=== PATIENT | female | born 1960 | race Caucasian/White ===

== ENCOUNTER 2018-07-26 01:56 | Observation (INO) ==
[2018-07-26] MEDS ORDERED: HYDROmorphone HCL 2 MG/ML VIAL IV ONE (02:19)
[2018-07-26] MEDS ORDERED: NORMAL SALINE 1,000 ML IV ONE ×2 (02:19→05:32)
[2018-07-26] MEDS ORDERED: ONDANSETRON HCL/PF 2 MG/ML VIAL IV ONE ×2 (02:19→05:35)
[2018-07-26] MEDS ORDERED: PANTOPRAZOLE SODIUM 40 MG/100 ML PIGGYBACK IV ONE (02:20)
--- NOTE | 2018-07-26 02:25 | ERNOTE ---
Abdominal HPI - Narrative Date of Service: 07/26/18 - General Chief Complaint: Abdominal Pain Time Seen by Provider: 07/26/18 02:14 Source: patient, family Exam Limitations: no limitations - Immun/Allergies/Home Medications Immunizatons: IMMUNIZATION HX Immunizations Up to Date Yes History of Influenza Vaccine No Hx Pneumococcal Vaccination No Allergies/Adverse Reactions: Allergies No Known Drug Allergies Allergy (Verified 10/29/15 11:32) Home Medications: HOME MEDICATIONS Levothyroxine Sodium [Synthroid] 50 mcg PO DAILY 07/26/18 [Last Taken Unknown] - History of Present Illness Narrative: onset of abdominal pain last evening after patient ate Timing: constant, getting worse Quality: moderate, cramping, dullness, fullness Modifying Factors - (Improves): Present: vomiting Modifying Factors - (Worsens): Present: eating Associated Symptoms: Present: nausea, vomiting, loss of appetite Prior Abdominal Problems: Present: none Review of Systems - Review of Systems Constitutional: Present: See HPI EYE: Present: no symptoms reported ENT: Present: no symptoms reported Respiratory: Present: no symptoms reported Cardiology: Present: no symptoms reported Gastrointestinal/Abdominal: Present: See HPI, nausea, vomiting, abdominal pain, eating less, drinking less Genitourinary: Present: no symptoms reported Musculoskeletal: Present: no symptoms reported Skin: Present: no symptoms reported Neurological: Present: no symptoms reported Endocrine: Present: no symptoms reported Hematologic/Lymphatic: Present: no symptoms reported Psych: Present: no symptoms reported All Other Systems: All systems neg except as marked Medical History (Last Updated 07/26/18 @ 02:08 by Jillian Stinson RN) Hypothyroidism Surgical History: Surgical History (Last Updated 07/26/18 @ 02:07 by Jillian Stinson RN) History of hysterectomy Status post cryoablation Social History: Preferred Language Tongan Do you have any worship or No cultural preference? Smoking Status Never smoker Psych History No pertinent hx Alcohol Use occasionally Drug Use none No Social History Section defined Physical Exam - Physical Exam General Appearance: Present: moderate distress, anxious Head Exam: Present: normal inspection, no evidence of injury Eye Exam: Normal inspection: bilateral, PERRL: bilateral, EOMI: bilateral Ears, Nose, Throat: Present: normal ENT inspection, normal pharynx Neck: Present: normal inspection, nontender Respiratory: Present: no respiratory distress, normal breath sounds, no accessory muscle use, chest nontender, lungs clear Cardiovascular/Chest: Present: regular rate, rhythm, no murmur, normal peripheral pulses Peripheral Pulses: N=norm/S=strong/W=weak/B=bound/A=absent: Carotid (R): Normal, Carotid (L): Normal, Radial (R): Normal, Radial (L): Normal, Femoral (R): Normal, Femoral (L): Normal, Dorsalis-pedis (R): Normal, Dorsalis-pedis (L): Normal Gastrointestinal/Abdominal: Present: tenderness, distended, other - pain localized to upper right quadrant and epigastrium Back Exam: Present: normal inspection, normal range of motion, no CVA tenderness, no vertebral tenderness Extremity Exam: Present: normal inspection, non-tender, normal range of motion, no edema Neurological Exam: Present: alert, oriented, normal mood/affect, no m otor/sensory deficits Skin Exam: Present: normal color, warm/dry Lymphatic Exam: Present: no adenopathy Progress - Date and Time Seen: Date and Time: 07/26/18 05:17 patient improved, discussed results of lab and x-rays with patient, to be admitted - Results and Orders Patient's Lab Results:: I have reviewed the patient's lab results. - Vital Signs Patient's Vital Signs:: I have reviewed the patient's vital signs. Vital Signs: Vital Signs 07/26/18 02:01 Temperature 36.4 C Pulse Rate 73 Respiratory Rate 22 H Blood Pressure 199/86 H O2 Sat by Pulse Oximetry 100 - X-Ray X-Ray #1 X-Ray: abdomen Interpretation: Interp. by [facility] - [facility] - CT/Ultrasound CT/Ultrasound Narrative: cholithiasis - Progress/Reassessment Chief Complaint: Abdominal Pain Progress:: Improved - Transfer of Care Expected Disposition: Admit Plan - Plan Plan: case discussed with dr deluna to be admitted Departure Clinical Impression: Cholelithiasis, Acute UTI - Departure Disposition: Still a patient Condition: Stable Referrals: Subha Ramírez MD [Primary Care Provider] -
[2018-07-26 02:34] LABS: Hematocrit 40.5 % (37.0-47.0); Hemoglobin 13.7 gm/dL (12.5-16.0); Mean Cell Volume 93.3 fl (78-100); Mean Corpuscular Hemoglobin 31.6 pg (27-31); Mean Corpuscular Hgb Conc 33.8 g/dl (32-36); Mean Platelet Volume 10.2 fl (8-12.5); Neutrophil # 9.5 K/mm3 (1.3-6.0); Neutrophil % 77.7 % (42-75.0); Platelet Count 292 K/mm3 (150-450); Red Blood Count 4.34 M/mm3 (4.2-5.4); Red Cell Distribution Width 12.3 % (11.5-14.0); White Blood Count 12.2 K/mm3 (4.0-10.5)
[2018-07-26 02:37] LABS: Urine Bilirubin Negative (NEGATIVE); Urine Ketone 15 mg/dL (NEGATIVE); Urine Nitrite Negative (NEGATIVE); Urine Protein Negative (NEGATIVE); Urine Urobilinogen Normal (NORMAL)
[2018-07-26 02:52] LABS: Bilirubin, Total 0.4 mg/dL (0.0-1.1); Calcium * 9.3 mg/dL (7.9-10.9); Carbon Dioxide 22.3 mmol/L (24-32.6); Potassium 3.3 mmol/L (3.4-4.6); Total Protein 7.7 gm/dL (6.2-8.2)
[2018-07-26 02:57] LABS: Urine Appearance Cloudy (CLEAR); Urine Blood 5 /ul (NEGATIVE); Urine Color Yellow
[2018-07-26 02:59] LABS: Urine WBC 0-5 /hpf (0-5)
[2018-07-26 03:00] LABS: Urine Bacteria 4+; Urine RBC None Seen /hpf (0-5)
[2018-07-26 03:01] LABS: Urine Renal Epithelial Cell TRACE /hpf
[2018-07-26] MEDS ORDERED: HYDROmorphone HCL 1 MG/ML DISP.SYRIN IV ONE (05:14)
[2018-07-26] MEDS ORDERED: ONDANSETRON HCL/PF 2 MG/ML VIAL IV PRN (07:48)
[2018-07-26] MEDS ORDERED: LEVOFLOXACIN IN DEXTROSE 5 % 500 MG/100 ML BAG IV SCH (08:00)
[2018-07-26] MEDS ORDERED: metroNIDAZOLE/SODIUM CHLORIDE 500 MG/100 ML BAG IV SCH (08:00)
[2018-07-26] MEDS: HYDROmorphone HCL 1 MG/ML DISP.SYRIN IV PRN (08:12)
--- NOTE | 2018-07-26 08:48 | HP ---
Chief Complaint - Chief Complaint Date of Service: 07/26/18 Time of Service: 08:36 Chief Complaint: Cholecystitis History of Present Illness: Naila is a pleasant 57-year-old female, who developed abdominal pain on Alexei night. She also had nausea and vomiting. She has never felt this way before. She does not normally eat a lot of fatty or greasy foods. However, when she does she does not have nausea or vomiting. She owns the furniture store in town. Her only abdominal surgery as a vaginal hysterectomy. Medical History (Last Reviewed 07/26/18 @ 07:26 by Hanh Corley RN) Hypothyroidism Surgical History: Surgical History (Last Reviewed 07/26/18 @ 07:26 by Hanh Corley RN) History of hysterectomy Status post cryoablation Family History: Family History (Last Updated 07/26/18 @ 07:26 by Hanh Corley RN) Father Bipolar 1 disorder Dementia A-fib Hypertension Mother Hypothyroidism Social History: Patient Lives/Resources With Spouse Utilized Preferred Language Yi Do you have any amish or No cultural preference? Smoking Status Never smoker Have you smoked in the past 12 No months Do you dip or chew tobacco No Psych History No pertinent hx Alcohol Use occasionally Drug Use none No Social History Section defined Review Of Systems (GEN) - Review of Systems Generalized/Overall Review: Present: Weakness, Malaise EENTM: Present: No Symptoms Reported Respiratory: Present: No Symptoms Reported Cardiac: Present: No Symptoms Reported Abdominal: Present: Nausea, Vomiting, Abdominal Pain Genitourinary: Present: No Symptoms Reported, Dysuria, Other - UTI Musculoskeletal: Present: No Symptoms Reported Neurological: Present: No Symptoms Reported Skin: Present: No Symptoms Reported Endocrine: Present: No Symptoms Reported Immunizations: IMMUNIZATION HX Immunizations Up to Date Yes History of Influenza Vaccine No Hx Pneumococcal Vaccination No Allergies/Adverse Reactions: Allergies Allergy/AdvReac Type Severity Reaction Status Date / Time No Known Drug Allergies Allergy Verified 10/29/15 11:32 Home Medications: HOME MEDICATIONS L.acidoph,Paracasei, B.lactis [Probiotic] 1 ea PO DAILY 07/26/18 [Last Taken Unknown] Levothyroxine Sodium [Synthroid] 50 mcg PO DAILY 07/26/18 [Last Taken Unknown] Exam - Exam Vital Signs: Vital Signs - Last Taken Temp 36.5 C 07/26/18 07:23 Pulse 66 07/26/18 07:23 Resp 16 07/26/18 07:23 BP 167/80 H 07/26/18 07:23 Pulse Ox 99 07/26/18 07:23 Constitutional: Present: Alert, Oriented x3, Cooperative ENT Exam: Present: hearing grossly normal Neck: Present: supple Back Exam: Present: normal inspection Breasts: Present: Exam deferred Respiratory: Present: lungs clear, normal breath sounds Cardiovascular/Chest: Present: regular rate, rhythm, no edema Abdomen: Present: soft, nondistended, no rebound tenderness, tender /Rectal: Present: Exam deferred Extremity: Present: normal range of motion Skin Exam: Present: normal color Lymphatic: Present: no adenopathy Neurologic: Present: field account manager II-XII nml as tested Appearance: Present: appropriate appearance Eye contact: Present: cooperative, good eye contact Thoughts: Present: normal thought pattern Diagnostic Studies: Abnormal Lab Results 07/26/18 07/26/18 07/26/18 Range/Units 02:30 02:30 02:30 WBC 12.2 H (4.0-10.5) K/mm3 MCH 31.6 H (27-31) pg Immature Gran # (Auto) 0.04 H (0.000-0.0310) K/mm3 Neutrophils % 77.7 H (42-75.0) % Lymphocytes % 12.9 L (20-51) % Neutrophils # 9.5 H (1.3-6.0) K/mm3 Monocytes # 1.1 H (0.0-1.0) k/mm3 Potassium 3.3 L (3.4-4.6) mmol/L Carbon Dioxide 22.3 L (24-32.6) mmol/L Anion Gap 19.0 H (6.8-13.8) mmol/L Est GFR (Non-Af Amer) 57 L (60-130) mL/min Random Glucose 175 H (70-110) mg/dL Urine Glucose (UA) 100 H (NEGATIVE) mg/dL Urine Blood 5 H (NEGATIVE) /ul Ur Leukocyte Esterase 25 H (NEGATIVE) /ul Ur Epithelial Cells 5-10 H (0-5) /hpf Urine Bacteria 4+ H (NONE) Laboratory Results WBC 12.2 K/mm3 (4.0-10.5) H 07/26/18 02:30 RBC 4.34 M/mm3 (4.2-5.4) 07/26/18 02:30 Hgb 13.7 gm/dL (12.5-16.0) 07/26/18 02:30 Hct 40.5 % (37.0-47.0) 07/26/18 02:30 MCV 93.3 fl (78-100) 07/26/18 02:30 MCH 31.6 pg (27-31) H 07/26/18 02:30 MCHC 33.8 g/dl (32-36) 07/26/18 02:30 RDW 12.3 % (11.5-14.0) 07/26/18 02:30 Plt Count 292 K/mm3 (150-450) 07/26/18 02:30 MPV 10.2 fl (8-12.5) 07/26/18 02:30 Immature Gran % (Auto) 0.30 % (0.001-0.429) 07/26/18 02:30 Immature Gran # (Auto) 0.04 K/mm3 (0.000-0.0310) H 07/26/18 02:30 Neutrophils % 77.7 % (42-75.0) H 07/26/18 02:30 Lymphocytes % 12.9 % (20-51) L 07/26/18 02:30 Monocytes % 8.7 % (0.0-9) 07/26/18 02:30 Eosinophils % 0.1 % (0.0-3.0) 07/26/18 02:30 Basophils % 0.3 % (0.0-1.0) 07/26/18 02:30 Nucleated RBC % 0.0 k/mm3 (0-1) 07/26/18 02:30 Neutrophils # 9.5 K/mm3 (1.3-6.0) H 07/26/18 02:30 Lymphocytes # 1.58 k/mm3 (1.5-3.5) 07/26/18 02:30 Monocytes # 1.1 k/mm3 (0.0-1.0) H 07/26/18 02:30 Eosinophils # 0.0 k/mm3 (0.0-0.7) 07/26/18 02:30 Absolute Basophils 0.0 k/mm3 (0.0-0.1) 07/26/18 02:30 Sodium 137 mmol/L (132-142) 07/26/18 02:30 Plasma Sodium 138 mmol/L (130-142) 07/26/18 02:30 Potassium 3.3 mmol/L (3.4-4.6) L 07/26/18 02:30 Chloride 99 mmol/L (97-106) 07/26/18 02:30 Carbon Dioxide 22.3 mmol/L (24-32.6) L 07/26/18 02:30 Anion Gap 19.0 mmol/L (6.8-13.8) H 07/26/18 02:30 BUN 18 mg/dL (3-23) 07/26/18 02:30 Creatinine 1.06 mg/dL (0.4-1.4) 07/26/18 02:30 Est GFR (Non-Af Amer) 57 mL/min (60-130) L 07/26/18 02:30 BUN/Creatinine Ratio 17.0 (9.0-21.6) 07/26/18 02:30 Random Glucose 175 mg/dL (70-110) H 07/26/18 02:30 Calcium 9.3 mg/dL (7.9-10.9) 07/26/18 02:30 Calcium Adj for Albumin 9.0 mg/dL (8.4-10.2) 07/26/18 02:30 Total Bilirubin 0.4 mg/dL (0.0-1.1) 07/26/18 02:30 AST 22 U/L (0-48) 07/26/18 02:30 ALT 29 U/L (19-67) 07/26/18 02:30 Alkaline Phosphatase 123 U/L (50-170) 07/26/18 02:30 Total Protein 7.7 gm/dL (6.2-8.2) 07/26/18 02:30 Albumin 4.0 gm/dl (3.4-5.0) 07/26/18 02:30 Amylase 25 U/L (25-115) 07/26/18 02:30 Lipase 124 U/L (73-393) 07/26/18 02:30 Urine Color Yellow 07/26/18 02:30 Urine Appearance Cloudy (CLEAR) 07/26/18 02:30 Urine pH 7.0 pH (5.0-7.0) 07/26/18 02:30 Ur Specific [place] 1.020 SP.GR. (1.005-1.010) 07/26/18 02:30 Urine Protein Negative mg/dL (NEGATIVE) 07/26/18 02:30 Urine Glucose (UA) 100 mg/dL (NEGATIVE) H 07/26/18 02:30 Urine Ketones 15 mg/dL (NEGATIVE) 07/26/18 02:30 Urine Blood 5 /ul (NEGATIVE) H 07/26/18 02:30 Urine Nitrate Negative (NEGATIVE) 07/26/18 02:30 Urine Bilirubin Negative mg/dl (NEGATIVE) 07/26/18 02:30 Urine Urobilinogen Normal EU/dl (NORMAL) 07/26/18 02:30 Ur Leukocyte Esterase 25 /ul (NEGATIVE) H 07/26/18 02:30 Urine RBC None seen /hpf (0-5) 07/26/18 02:30 Urine WBC 0-5 /hpf (0-5) 07/26/18 02:30 Ur Epithelial Cells 5-10 /hpf (0-5) H 07/26/18 02:30 Ur Renal Epithelial Cell Trace /hpf (NONE) 07/26/18 02:30 Urine Bacteria 4+ (NONE) H 07/26/18 02:30 Urine Culture Comments Culture to follow 07/26/18 02:30 Assessment/Plan - Narrative Narrative: I recommend laparoscopic possible open cholecystectomy, with possible intraoperative cholangiogram. We discussed the anatomy and pathophysiology of the biliary system. Risks and benefits of the procedure were discussed including: conversion to an open procedure, bleeding, infection, bile leak, damage to the common bile duct, need for reoperation, and persistence of abdominal symptoms. The patient voices understanding and would like to proceed. Also started antibiotics control pain and nausea until surgery. - Assessment/Plan (1) Acute cholecystitis Problem: Acute (2) Acute UTI Problem: Acute (3) Cholelithiasis Problem: Acute Qualifiers: Cholelithiasis location: gallbladder Cholecystitis presence: with cholecystitis Cholecystitis acuity: acute Biliary obstruction: without biliary obstruction Qualified Code(s): K80.00 - Calculus of gallbladder with acute cholecystitis without obstruction
--- NOTE | 2018-07-26 10:32 | ANES ---
Anesthesia Pre Procedure Eval Vitals/Labs: Last Vital Signs Temp 36.9 C 07/26/18 10:00 Pulse 79 07/26/18 10:00 Resp 18 07/26/18 10:00 BP 158/75 H 07/26/18 10:00 Pulse Ox 100 07/26/18 10:00 HOME MEDICATIONS L.acidoph,Paracasei, B.lactis [Probiotic] 1 ea PO DAILY 07/26/18 [Last Taken Unknown] Levothyroxine Sodium [Synthroid] 50 mcg PO DAILY 07/26/18 [Last Taken Unknown] Allergies/Adverse Reactions: Allergies Allergy/AdvReac Type Severity Reaction Status Date / Time No Known Drug Allergies Allergy Verified 10/29/15 11:32 - Planned Procedure Planned Procedure: CHOLELITHIASIS,UTI Medication List Reviewed:: Yes Allergies Verified: Yes Medical History (Last Reviewed 07/26/18 @ 10:31 by Bobby Sykes CRNA) Hypothyroidism Surgical History (Last Reviewed 07/26/18 @ 10:31 by Bobby Sykes CRNA) History of hysterectomy Status post cryoablation Family History (Last Reviewed 07/26/18 @ 10:31 by Bobby Sykes CRNA) Father Bipolar 1 disorder Dementia A-fib Hypertension Mother Hypothyroidism - Family Anesthesia History Family History:: no untoward family reactions to anesthesia - Airway/Neck/Teeth Within Normal Limits:: Yes Teeth Condition: intact Denture Type: None Neck Exam: full range of motion Mallampatti Score: 2 Thyromental (T-M) distance: > 6 cm Mandibulo Hyoid distance: > 3 cm - Respiratory Respiratory Physical: lungs clear Smoking Status: Never smoker Sleep Apnea currently treated: No Sleep Apnea by current assessment: No - Cardiovascular Tolerate Activity: Good Heart Sounds: S1 & S2, Regular - Anesthesia Assessment and Plan ASA Class: PS, II Anesthesia Type Plan: General ET Planned difficult intubation/equipment available: No
[2018-07-26] MEDS ORDERED: SCOPOLAMINE HYDROBROMIDE 1.5 MG PATC TD ONE (10:33)
[2018-07-26] MEDS ORDERED: BUPIVACAINE HCL 50 ML VIAL IJ ONE (12:47)
[2018-07-26] MEDS ORDERED: HYDROcodone/ACETAMINOPHEN 1 EACH TABLET PO PRN (13:29)
--- NOTE | 2018-07-26 13:34 | OR ---
Operative Report - Dictated Report Narrative: Date of Service: 07/26/18 Procedure: laparoscopic cholecystectomy Pre-procedure diagnosis: Cholethiasis with Acute Cholecystitis Post-procedure diagnosis: same Surgeon: Dr. Naina Vincent Anesthesia: general Indication for procedure: Naila is a pleasant 57 year old female who was admitted through the ER for acute cholecystitis. Description of procedure: After appropriate informed consent was obtained patient was taken to the operating room, placed in the supine position. General anesthesia was achieved. The patient was prepped and draped in the usual sterile fashion. A 5 mm periumbilical incision was made, hemostat was used to dissect down to the fascia. A Veress needle was inserted, a saline drop test was performed which was satisfactory. The abdomen was insufflated to 15 mmHg. A 5mm blunt trocar was placed at the umbilicus. The camera was inserted, there was no evidence of a trocar injury. An 11 mm trocar was placed in subxiphoid position. A 5 mm trocar was placed in the right upper quadrant. An additional 5 mm trocar was placed in the right upper lateral quadrant The patient was placed in a head up, rotated left position, to facilitate exposure. The gallbladder was identified, and was elevated over the liver. The gallbladder wa s firm and difficult to grasp, a needle was inserted into the gallbladder and it was aspirated. This facilitated exposure. The cystic duct was identified and was dissected out, this was directly entering the gallbladder. The cystic artery was then identified, it was directly entering the gallbladder. There were 3 clips placed on the stay side of the cystic duct, 1 clip was placed on the gallbladder side, the cystic duct was then transected. The cystic artery had 2 clips placed on the stay side, 1 on the gallbladder side. The EndoShears were used to transect the cystic artery. The gallbladder was then removed from the liver bed using electrocautery. A small hole was made in the gallbladder and stones were spilled, these were retrieved with the stone grasper. The gallbladder was placed in an Endo Catch bag, and removed through the subxiphoid port. The liver was inspected and hemostasis was achieved. The area over the liver was irrigated until clear. The remainder of the abdomen was inspected and was satisfactory. The xiphoid trocar site was closed with an 0 Vicryl suture using a PMI device. The abdomen was desufflated. Local anesthetic was injected. The incisions were closed with inverted interrupted 4-0 Monocryl sutures. Mastisol and Steri-Strips were applied. The patient tolerated the procedure well and was transported to the PACU in satisfactory condition. Estimated blood loss: minimal Complications: none Specimens to pathology: Gallbladder Disposition: Admit back to the floor for observation.
--- NOTE | 2018-07-26 13:37 | ANES ---
Post Anesthesia Discharge - Transfer of Care Transfer of Care handoff given to nurse: Yes - Discharge from PACU Discharge from PACU when meets criteria: Yes - Comfortable in PACU.
--- NOTE | 2018-07-26 14:06 | ANES ---
Post Anesthesia Assessment - Vital Signs Vitals: Last Vital Signs Temp 36.4 C 07/26/18 13:55 Pulse 97 07/26/18 13:55 Resp 16 07/26/18 13:55 BP 136/66 07/26/18 13:55 Pulse Ox 100 07/26/18 13:55 Airway Patency: Normal - Mental Status Level Of Consciousness: Awake, Alert, Appropriate - Pain Level Pain Score: 10 - Narcotic given - N/V Assessment Nausea/Vomiting Presence: None Dehydration:: No
[2018-07-26] MEDS: HYDROcodone/ACETAMINOPHEN 1 EACH TABLET PO PRN (23:21)
[2018-07-27] MEDS: HYDROcodone/ACETAMINOPHEN 1 EACH TABLET PO PRN ×3 (06:44→20:13)
--- NOTE | 2018-07-27 08:37 | DS ---
(1) Acute cholecystitis Problem: Acute (2) Acute UTI Problem: Acute (3) Cholelithiasis Problem: Acute Qualifiers: Cholelithiasis location: gallbladder Cholecystitis presence: with cholecystitis Cholecystitis acuity: acute Biliary obstruction: without biliary obstruction Qualified Code(s): K80.00 - Calculus of gallbladder with acute cholecystitis without obstruction Description of Stay: Naila is a pleasant 57-year-old female was admitted through the emergency room for acute cholecystitis. She underwent laparoscopic cholecystectomy yesterday which was uneventful. She is improving today. She is able to eat some of her breakfast. She still feels like she has significant gas bloating. If she continues to improve and tolerates lunch, she can discharge later today. Procedures Performed: see notes below List Procedures: Laparoscopic cholecystectomy Results and Findings: Pending Mircobiology Results 07/26/18 02:00 Urine,Voided Urine Culture - Preliminary No Growth Lab Pending Results 07/26/18 02:30: WBC 12.2 H, RBC 4.34, Hgb 13.7, Hct 40.5, MCV 93.3, MCH 31.6 H, MCHC 33.8, RDW 12.3, Plt Count 292, MPV 10.2, Immature Gran % (Auto) 0.30, Immature Gran # (Auto) 0.04 H, Neutrophils % 77.7 H, Lymphocytes % 12.9 L, Monocytes % 8.7, Eosinophils % 0.1, Basophils % 0.3, Nucleated RBC % 0.0, Neutrophils # 9.5 H, Lymphocytes # 1.58, Monocytes # 1.1 H, Eosinophils # 0.0, Absolute Basophils 0.0 07/26/18 02:30: Sodium 137, Plasma Sodium 138, Potassium 3.3 L, Chloride 99, Carbon Dioxide 22.3 L, Anion Gap 19.0 H, BUN 18, Creatinine 1.06, Est GFR (Non- Af Amer) 57 L, BUN/Creatinine Ratio 17.0, Random Glucose 175 H, Calcium 9.3, Calcium Adj for Albumin 9.0, Total Bilirubin 0.4, AST 22, ALT 29, Alkaline Phosphatase 123, Total Protein 7.7, Albumin 4.0, Amylase 25, Lipase 124 07/26/18 02:30: Urine Color Yellow, Urine Appearance Cloudy, Urine pH 7.0, Ur Specific Frederic 1.020, Urine Protein Negative, Urine Glucose (UA) 100 H, Urine Ketones 15, Urine Blood 5 H, Urine Nitrate Negative, Urine Bilirubin Negative, Urine Urobilinogen Normal, Ur Leukocyte Esterase 25 H, Urine RBC None seen, Urine WBC 0-5, Ur Epithelial Cells 5-10 H, Ur Renal Epithelial Cell Trace, Urine Bacteria 4+ H, Urine Culture Comments Culture to follow Discharge Location: Home Disposition: Home self-care Condition: Stable Face to Face Encounter completed per [facility] Guidelines: No Discharge Activity: Activity as tolerated Discharge Diet: General/regular food Referrals: Subha Ramírez MD [Primary Care Provider] - Complete Home Medications List: Complete Home Medication List: L.acidoph,Paracasei, B.lactis [Probiotic] 1 ea PO DAILY 07/26/18 Levothyroxine Sodium [Synthroid] 50 mcg PO DAILY 07/26/18 HYDROcodone/ACETAMINOPHEN [[place] 5-325] 2 each PO Q6H PRN tablet 07/27/18
--- NOTE | 2018-07-27 08:39 | PN ---
Subjective - Date and Time Seen Date: 07/27/18 Time: 07:45 Subjective Narrative: Patient is doing well today, overall she feels better than yesterday. She is having significant gas bloat. She did tolerate some breakfast. She had no nausea or vomiting. Objective - Review of Systems Generalized/Overall Review: Reports: Malaise EENTM: Reports: No Symptoms Reported Respiratory: Reports: No Symptoms Reported Cardiac: Reports: No Symptoms Reported Abdominal: Reports: Abdominal Pain Genitourinary Symptoms: Reports: No Symptoms Reported Musculoskeletal Complaints: Reports: No Symptoms Reported Neurological: Reports: No Symptoms Reported Skin: Reports: No Symptoms Reported Endocrine: Reports: No Symptoms Reported - Vitals Vitals: Last Vital Signs Temp 36.7 C 07/27/18 06:35 Pulse 71 07/27/18 06:35 Resp 14 07/27/18 06:35 BP 180/92 H 07/27/18 06:35 Pulse Ox 98 07/27/18 06:35 - Exam Constitutional: Present: Alert, Oriented x3 ENT Exam: Present: hearing grossly normal Neck: Present: non-tender Breasts: Present: Exam deferred Respiratory: Present: lungs clear, normal breath sounds Cardiovascular/Chest: Present: normal peripheral pulses, regular rate, rhythm Abdomen: Present: Normal bowel sounds, soft, tender /Rectal: Present: Exam deferred Extremity: Present: normal range of motion Skin Exam: Present: normal color Lymphatic: Present: no adenopathy Neurologic: Present: machine cell tuber II-XII nml as tested Appearance: Present: appropriate appearance, appropriate insight Eye contact: Present: cooperative, good eye contact Thoughts: Present: normal thought pattern Assessment/Plan - Problems/Diagnosis (1) Acute cholecystitis Problem: Acute (2) Acute UTI Problem: Acute (3) Cholelithiasis Problem: Acute Qualifiers: Cholelithiasis location: gallbladder Cholecystitis presence: with cholecystitis Cholecystitis acuity: acute Biliary obstruction: without biliary obstruction Qualified Code(s): K80.00 - Calculus of gallbladder with acute cholecystitis without obstruction Plan - Plan Plan: Patient will discharge home after lunch if tolerates lunch well. Would like to see her symptoms of gas bloat improved prior to DC. Will follow-up with me in 2 weeks.
[2018-07-27] MEDS: HYDROmorphone HCL 1 MG/ML DISP.SYRIN IV PRN (14:00)
[2018-07-28] MEDS: HYDROcodone/ACETAMINOPHEN 1 EACH TABLET PO PRN ×2 (04:34→12:11)
--- NOTE | 2018-07-28 09:47 | PN ---
Subjective Subjective Narrative: feeling better, but still having some pain. Objective - Review of Systems Generalized/Overall Review: Reports: Malaise EENTM: Reports: No Symptoms Reported Respiratory: Reports: No Symptoms Reported Cardiac: Reports: No Symptoms Reported Abdominal: Reports: Abdominal Pain Genitourinary Symptoms: Reports: No Symptoms Reported Musculoskeletal Complaints: Reports: No Symptoms Reported Neurological: Reports: No Symptoms Reported Skin: Reports: No Symptoms Reported Endocrine: Reports: No Symptoms Reported - Vitals Vitals: Last Vital Signs Temp 36.8 C 07/28/18 06:15 Pulse 104 H 07/28/18 06:15 Resp 12 07/28/18 06:15 BP 167/95 H 07/28/18 06:15 Pulse Ox 94 07/28/18 06:15 - Exam Constitutional: Present: Alert, Oriented x3, Cooperative ENT Exam: Present: hearing grossly normal Neck: Present: supple Breasts: Present: Exam deferred Respiratory: Present: chest non-tender, lungs clear, normal breath sounds Cardiovascular/Chest: Present: regular rate, rhythm Abdomen: Present: Normal bowel sounds, tender. Absent: guarding, rigidity, rebound tenderness /Rectal: Present: Exam deferred Extremity: Present: normal range of motion Skin Exam: Present: normal color Lymphatic: Present: no adenopathy Neurologic: Present: primary special education teacher II-XII nml as tested Appearance: Present: appropriate appearance Eye contact: Present: cooperative, good eye contact Thoughts: Present: normal thought pattern Assessment/Plan - Problems/Diagnosis (1) Acute cholecystitis Problem: Acute (2) Acute UTI Problem: Acute (3) Cholelithiasis Problem: Acute Qualifiers: Cholelithiasis location: gallbladder Cholecystitis presence: with cholecystitis Cholecystitis acuity: acute Biliary obstruction: without biliary obstruction Qualified Code(s): K80.00 - Calculus of gallbladder with acute cholecystitis without obstruction
[2018-07-28 13:18] VITALS: BP 138/90
== END 2018-07-28 13:35 | disposition home or self-care (01) ==
LOC: ER 01:56 → INTOOBSV 05:16 → MS 05:16
PROVIDERS: ADMIT Surgery; ATTEND Surgery
CPT/HCPCS: 36415; 74019; 74020; 76705; 80053; 81001; 82150; 83690; 85025; 87086; 88304; 99285; G0378; J2405

== ENCOUNTER 2019-10-19 06:32 | Inpatient (IN) ==
[~2019-10-19 06:32] MED LIST: BUPIVACAINE HCL IJ PRN; MORPHINE SULFATE 15 MG TABLET.SA PO PRN; ROPIVACAINE HCL/PF 100 MG, EPINEPHrine 0.2 MG, KETOROLAC TROMETHAMINE 30 MG in NORMAL S... IJ PRN; TRANEXAMIC ACID 1,000 MG in NORMAL SALINE 100 ML IV PRN; TRIAMCINOLONE ACETONIDE 40 MG IJ PRN; ceFAZolin SODIUM 1 GM VIAL IV PRN
--- NOTE | 2019-10-19 07:39 | ANES ---
Anesthesia Pre Procedure Eval Vitals/Labs: Last Vital Signs Temp 36.6 C 10/19/19 06:35 Pulse 77 10/19/19 06:35 Resp 18 10/19/19 06:35 BP 146/85 10/19/19 06:35 Pulse Ox 98 10/19/19 06:35 HOME MEDICATIONS L.acidoph,Paracasei, B.lactis [Probiotic] 1 ea PO DAILY 07/26/18 [Last Taken 10/18/19] cholecalciferol (vitamin D3) 50 mcg (2,000 unit) capsule 2,000 unit PO DAILY 10/05/18 [Last Taken 10/18/19] omega-3 fatty acids 1,000 mg capsule 1,000 mg PO DAILY 10/05/18 [Last Taken Unknown] Ubidecarenone [Co Q-10] 200 mg PO DAILY 07/06/19 [Last Taken 10/18/19] levothyroxine 75 mcg tablet 75 mcg PO DAILY #90 tab 10/05/19 [Last Taken 10/19/19] Allergies/Adverse Reactions: Allergies Allergy/AdvReac Type Severity Reaction Status Date / Time No Known Drug Allergies Allergy Verified 10/19/19 06:42 - Planned Procedure Planned Procedure: Arthroplasty Total Knee Medication List Reviewed:: Yes Allergies Verified: Yes Medical History (Last Reviewed 10/19/19 @ 07:37 by Bobby Sykes CRNA) Knee pain, right (Acute) Onset Date: Unknown Hypothyroidism Onset Date: Unknown Surgical History (Last Reviewed 10/19/19 @ 07:37 by Bobby Sykes CRNA) History of breast biopsy Onset Date: 05/27/02 Bagan-right. History of colonoscopy Onset Date: 11/08/10 11/11/10 Tinguely-very long tortuous colon. History of hysterectomy Onset Date: ~10/2004 Hx of cholecystectomy Onset Date: 07/26/18 [place] Status post cryoablation Onset Date: ~2001 Family History (Last Reviewed 10/19/19 @ 07:38 by Bobby Sykes CRNA) Father Bipolar 1 disorder Dementia A-fib Hypertension Mother Hypothyroidism - Family Anesthesia History Family History:: no untoward family reactions to anesthesia - Airway/Neck/Teeth Within Normal Limits:: Yes Teeth Condition: intact Denture Type: None Neck Exam: full range of motion Mallampatti Score: 2 Thyromental (T-M) distance: > 6 cm Mandibulo Hyoid distance: > 3 cm - Respiratory Respiratory Physical: lungs clear Smoking Status: Never smoker Sleep Apnea currently treated: No Sleep Apnea by current assessment: No - Cardiovascular Tolerate Activity: Fair Heart Sounds: S1 & S2, Regular - Gastrointestinal NPO since: MN - Anesthesia Assessment and Plan ASA Class: PS, II Anesthesia Type Plan: Spinal - rt adductor canal block Planned difficult intubation/equipment available: No
[2019-10-19] MEDS: RINGER'S SOLUTION,LACTATED 1,000 ML IV PRN ×3 (07:51→09:30)
[2019-10-19] MEDS ORDERED: DEXTROSE 5%-LACTATED RINGERS 1,000 ML IV PRN (10:02)
[2019-10-19] MEDS ORDERED: MAGNESIUM HYDROXIDE 30 ML UDC PO PRN (10:02)
[2019-10-19] MEDS ORDERED: MAG HYDROX/ALUMINUM HYD/SIMETH 30 ML UDC PO PRN (10:02)
[2019-10-19] MEDS ORDERED: diphenhydrAMINE HCL 50 MG/ML VIAL IV PRN (10:02)
[2019-10-19] MEDS ORDERED: MORPHINE SULFATE 2 MG/ML DISP.SYRIN IV PRN (10:02)
[2019-10-19] MEDS ORDERED: ONDANSETRON HCL/PF 2 MG/ML VIAL IV PRN (10:02)
[2019-10-19] MEDS ORDERED: ZOLPIDEM TARTRATE 5 MG TABLET PO PRN (10:02)
[2019-10-19] MEDS ORDERED: ACETAMINOPHEN 500 MG TABLET PO PRN (10:02)
--- NOTE | 2019-10-19 10:02 | OR ---
Operative Report - Dictated Report Narrative: Date: 10/19/2019 Preoperative diagnosis: Right knee degenerative joint disease. Postoperative diagnosis: Right knee degenerative joint disease. Procedure: Right total knee arthroplasty. Surgeon: Beto Patel M.D. [employer]cher [employer]: Fermín Martinez PA-C (provided and essential set of skilled, educated hands that assisted with transfer, positioning, prepping, draping, manipulation, retraction, placement of jigs, injection, insertion of implants, irrigation, closure wounds, and dressings all of which could not be performed by the available surgical crew) Anesthesia: Spinal with regional block and local periarticular joint injection. Complications: None Specimens: Bone. Estimated blood loss: Minimal. Tourniquet time: 95 Minutes at 300 millimeters of mercury. Retained implants: Depuy Attune size 7 right lugged cemented posterior stabilized femoral component. Size 6 fixed-bearing cemented tibial platform. 7 by 6 millimeter posterior stabilized cross-linked tibial insert. 38 millimeter medialized patella button. Indications: Mrs. Ramos is a 59-year-old female who has had longstanding right knee pain and arthrosis. This patient was followed in my clinic for period of time with significant complaints of right knee pain consistent with arthritic changes. She had failed conservative measures including, but not limited to, activity modification, passage of time, medications, and other conservative measures. Patient wished to proceed with surgical treatment. The risks, benefits, and alternatives were discussed in clinic. The risks of , blood clots, bleeding, infection, nerve/tendon blood vessel/ injury, malposition of components, intraoperative fracture, postoperative limited range of motion, persistent pain, failure of components, and need for additional procedures. Patient wished to proceed consent was obtained after answering all questions. Procedure: After marking the correct extremity on the floor, the patient was taken to the operating room. A timeout was performed. IV antibiotics consisting of Ancef were administered prior to the procedure. A regional followed by spinal anesthetic was induced by anesthesia, per my request, on the operative table with all bony prominences well-padded. Chowdhury catheter was placed, and a bump was placed under the operative side buttock. SCDs and ALVIN hose were utilized on the nonoperative leg. A well-padded tourniquet was applied to the operative thigh. The operative leg was then pre-scrubbed with alcohol, prepped, and draped in a standard sterile fashion. After exsanguinating the extremity with an Esmarch bandage, the tourniquet was inflated. After marking out the anterior knee for standard incision centered over the patella, the skin was incised and dissected down to the joint retinaculum. The joint retinaculum was marked out as well as the horizontal axis of the patella, and a standard medial parapatellar arthrotomy was then made. The most proximal aspect of the quadriceps tendon and the patella tendon insertion were protected from release. A partial synovectomy was performed as well as a resection of the infrapatellar fat pad. The distal femoral fat pad proximal to the trochlea was also resected using cautery. The soft tissues were elevated off the medial as pect of the proximal tibia using a Angeles elevator ensuring that we did not transect the medial collateral ligament. Upon initial evaluation range of motion was approximately 0 degrees to 130 degrees of flexion. There were signs of advanced arthrosis in the medial and patellofemoral joints greater than the lateral joint spaces. There were large marginal osteophytes which were removed with a rongeur. The knee was hyperflexed and the patella was tucked laterally. Protecting the surrounding soft tissues with Homans, an entry drill was placed down the femoral canal using Whitesides line for guidance into the entry point. The intramedullary femoral alignment lanny was utilized in order to cut the distal femur in 5 degrees of valgus resecting 10 millimeters of bone. Next the distal femur was sized to a size 7. A posterior referencing guide was utilized to place the distal femoral cutting block in 3 degrees of external rotation. This was pinned into place. The rotation was confirmed both visually and based on anatomic landmarks. The 4 in 1 cutting jig of the appropriate size was utilized in order to make all bony cuts. The nahoym wing was used to ensure no notching. Retractors were utilized in order to protect surrounding soft tissues. This cut did not result in any excessive notching. We then cut the box centered over the distal femur. This allowed for resection of the anterior and posterior cruciate ligaments. I then turned my attention to the preparation of the tibia. Using an extra medullary tibial alignment lanny, 5 millimeters of bone was resected off the medial articular surface. This was made perpendicular to the mechanical axis of the joint with the alignment lanny centered over the ankle mortise. The alignment lanny was checked and was noted to be parallel to the mechanical axis, centered over the medial one third of the tibial tubercle, paralleling the anterior surface of the tibia. We then turned our attention to the remaining meniscus and soft tissues. These were removed while protecting the surrounding ligaments and soft tissues. The marginal osteophytes off the anterior, posterior, medial, lateral aspects of the femur and tibia were removed . The tibia was sized out to a size 6. Next the tibia was drilled and punched in an externally rotated position. Next the trial femur and a series of tibial inserts were utilized in order to allow for full extension and maximal flexion. It was found that a 6 millimeter insert gave the best range of motion and stability at multiple flexion points as well as at full extension there was less than 2 mm of gapping both medially and laterally. There is minimal anterior translation with the knee at 90 degrees of flexion and no signs of being able to dislocate the knee. The patella was then prepared. The initial thickness was 23 millimeters. This was reamed down to 13 millimeters parallel to the anterior surface of the patella. It was sized out to a size 38 medialized patella button. This was then drilled and trialed. Without any medial restraint the patella tracked appropriately and did not sublux or dislocate. At this point, it was felt these were the appropriate sized implants, and all trials were removed. The standard periarticular joint injection consisting of ropivacaine, Toradol, and epinephrine were injected into the periarticular joint tissues. The bony surfaces were thoroughly irrigated with a pulsatile-suction saline irrigation device. A bone plug from the prior resected anterior chamfer cut was placed into the drill hole at the distal femur. The bony surfaces were then dried in preparation for placement of the implants. The cement was vacuum mixed per the window shade cloth sewer's instructions. The cement was placed on the dry bony surfaces and posterior aspect of the implants. The implants were impacted into place, removing all extruded cement. At this point anesthesia administered tranexamic acid per protocol intravenously. The knee was placed in extension with axial loading with the trial insert while the cement cured. Once the cement cured, all remaining extruded cement was removed. The knee was placed through a range of motion with the trial insert to ensure appropriate range of motion and stability. Final range of motion was approximately 0 to 130 degrees. The knee was again thoroughly irrigated with pulsatile saline lavage. The final polyethylene insert was then impacted into place ensuring no retained soft tissues. The remaining periarticular joint injection was injected. A medium Hemovac drain was placed exiting superior laterally. The knee was then placed over a triangle and the arthrotomy was closed with interrupted #1 Vicryl after thoroughly irrigating the joint. The deep and subcutaneous tissues were closed with interrupted 0 and 3-0 Vicryl respectively. Skin was closed with a running subcutaneous 3-0 Monocryl and Prineo Dermabond dressing. 4 x 4's, Sof-Rol, and a full leg Jerad wrap were applied. All sponge, needle, blade, and instrument counts were correct prior to closing the wounds. Postoperative condition: The patient was awoken and transferred to the postanesthesia care unit in stable condition. Plan is to be admitted to the inpatient medical/surgical floor postoperatively for 24 hours of IV antibiotics, physical therapy, occupational therapy, and medical comanagement. Patient will be weightbearing as tolerated with range of motion as tolerated. DVT prophylaxis will be with SCDs, ALVIN hose, and pharmacological anticoagulation. Anticipated hospital stay is approximately 1-3 days.
--- NOTE | 2019-10-19 10:21 | ANES ---
Post Anesthesia Discharge - Transfer of Care Transfer of Care handoff given to nurse: Yes - Discharge from PACU Discharge from PACU when meets criteria: Yes
--- NOTE | 2019-10-19 10:25 | ANES ---
Anesthesia Procedure Note Procedure Note: ANESTHESIA PROCEDURE NOTE Date of procedure: 10/19/2019. Time of procedure: 50. Performed by: Sumeet Sykes CRNA Slasher Runner: Debbi Manzo RN . Preprocedure diagnosis: Right knee DJD. Post procedure diagnosis: Same. Procedure: Ultrasound-guided right adductor canal block Indications: Postoperative analgesia. Findings: Patient was brought to operating room #4, given sedation and a spinal anesthetic. Patient's right inner thigh was prepped with ChloraPrep. Ultrasound utilized to identify the saphenous nerve in the right adductor canal. A 20-gauge 4 inch regional block needle was advanced under ultrasound guidance until tip of needle was positioned just proximally to saphenous nerve. 30 mL of 0.25% Marcaine with epinephrine 1 200,000 was injected with adequate spread of local anesthesia noted around the nerve. Regional block needle was removed intact. EBL: Minimal. Fluids: N/A. Specimen: N/A. Post procedure condition: The patient tolerated the procedure well. No complications were noted. Thank you for this consultation Sumeet Sykes CRNA
[2019-10-19] MEDS: KETOROLAC TROMETHAMINE 15 MG/ML VIAL IV SCH ×3 (10:57→23:08)
[2019-10-19] MEDS: ceFAZolin SODIUM 1 GM in DEXTROSE 5 % IN WATER 100 ML IV SCH ×6 (11:05→23:09)
--- NOTE | 2019-10-19 12:15 | ANES ---
Post Anesthesia Assessment - Vital Signs Vitals: Last Vital Signs Temp 36.6 C 10/19/19 11:04 Pulse 67 10/19/19 11:34 Resp 16 10/19/19 11:04 BP 147/78 10/19/19 11:34 Pulse Ox 100 10/19/19 11:34 Airway Patency: Normal - Mental Status Level Of Consciousness: Awake - Pain Level Pain Score: 0 - N/V Assessment Nausea/Vomiting Presence: None Dehydration:: No
[2019-10-19] MEDS: oxyCODONE HCL/ACETAMINOPHEN 1 TAB TABLET PO PRN ×2 (16:55→23:59)
[2019-10-19] MEDS: MORPHINE SULFATE 15 MG TABLET.SA PO SCH (20:11)
[2019-10-19] MEDS ORDERED: SENNOSIDES/DOCUSATE SODIUM 1 TAB TABLET PO SCH (21:00)
[2019-10-20] MEDS: KETOROLAC TROMETHAMINE 15 MG/ML VIAL IV SCH ×2 (04:44→11:39)
[2019-10-20 06:34] LABS: Hematocrit 31.3 % (37.0-47.0); Hemoglobin 10.2 gm/dL (12.5-16.0); Mean Corpuscular Hemoglobin 31.3 pg (27-31); Mean Corpuscular Hgb Conc 32.6 g/dl (32-36); Mean Platelet Volume 9.5 fl (8-12.5); Platelet Count 256 K/mm3 (150-450); Red Blood Count 3.26 M/mm3 (4.2-5.4); Red Cell Distribution Width 13.2 % (11.5-14.0)
[2019-10-20 06:39] LABS: Anion Gap 5.6 mmol/L (6.8-13.8); BUN/Creatinine Ratio 15.9 (9.0-21.6); Calcium * 8.5 mg/dL (7.9-10.9); Carbon Dioxide 30.4 mmol/L (24-32.6); Estimated Creat Clear 68.9
[2019-10-20] MEDS ORDERED: LEVOTHYROXINE SODIUM 75 MCG TABLET PO SCH (07:00)
[2019-10-20] MEDS: oxyCODONE HCL/ACETAMINOPHEN 1 TAB TABLET PO PRN ×2 (07:08→13:24)
[2019-10-20] MEDS ORDERED: CHOLECALCIFEROL 1,000 UNIT CAPSULE PO SCH (09:00)
[2019-10-20] MEDS ORDERED: LACTOBACILLUS ACIDOPHILUS 1 EACH CAPSULE PO SCH (09:00)
[2019-10-20] MEDS ORDERED: OMEGA-3 FATTY ACIDS 1 CAP CAPSULE PO SCH (09:00)
[2019-10-20] MEDS ORDERED: Ubidecarenone [Co Q-10] 200 MG PO SCH (09:00)
[2019-10-20] MEDS ORDERED: ENOXAPARIN SODIUM 40 MG/0.4 ML SYRG SC SCH (09:02)
[2019-10-20] MEDS: MORPHINE SULFATE 15 MG TABLET.SA PO SCH (09:08)
--- NOTE | 2019-10-20 11:45 | DS ---
(1) Status post total right knee replacement Problem: Acute (2) Acute blood loss anemia Problem: Acute (3) Hypothyroid Problem: Chronic Date of Discharge:: 10/20/19 Hospital Course: Mrs. Ramos was admitted to the floor after undergoing right total knee arthroplasty. Tolerated this well. Was admitted to the floor postoperatively for 24 hours of IV antibiotics, pain control, medical comanagement, and occupa tional and physical therapy. OT and PT were consulted to assist with activities of daily living and ambulation. Was made weightbearing as tolerated with range of motion as tolerated. Pain was initially controlled with IV regimen. This was transitioned to oral once tolerating a by mouth intake. Was resumed on home diet and medications. A Chowdhury catheter was inserted in the operating room which was discontinued by postoperative day 1. A drain was placed intraoperatively into the knee which was discontinued on postoperative day 1. Lovenox, SCDs, and ALVIN hose were utilized for DVT prophylaxis. Vital signs remained stable to the hospital course. Labs were obtained which showed a final hemoglobin of 10.2 grams. Pre-op hemoglobin was 13.2. She was asymptomic and thus the acute blood loss anemia will be monitored and treated clinically. BMP was reviewed and was stable. Physical examination throughout the hospital course showed an extremity that had sensation that was intact to light touch, palpable pulses, a benign wound, motor intact to the toes, ankle, and knee. Knee range of motion was approximately 0 degrees to 40 degrees. Once an oral pain regimen was tolerated and physical therapy goals were met, it was felt that they were stable for discharge to home. Instructions: Continue with weightbearing as tolerated and range of motion as tolerated. It is okay to shower and get the wound wet as long as there is no drainage from the wound. Do not bathe or soak the wound. If there is any drainage from the wound keep the wound clean and dry and cover with dry gauze and tape. Change every 2- 3 days as needed if there is any drainage. Cover wound while showering if there is any drainage. Continue with physical therapy. Resume home diet. Report any fever over 101.5 Fahrenheit, uncontrolled pain, increased drainage, foul odor of drainage, new or increased calf pain or shortness of breath, or any other significant complaints. A 325mg daily aspirin will be started after finishing anticoagulation if not allergic. Continue with ALVIN hose on the operative extremity until instructed otherwise. No driving until instructed otherwise. Follow up in approximately 2-3 weeks. Procedures Performed: see notes below List Procedures: Right total knee arthroplasty Results and Findings: Lab Pending Results 10/20/19 06:28: WBC 5.0, RBC 3.26 L, Hgb 10.2 L, Hct 31.3 L, MCV 96.0, MCH 31.3 H, MCHC 32.6, RDW 13.2, Plt Count 256, MPV 9.5 10/20/19 06:28: Sodium 138, Plasma Sodium 138, Potassium 4.0, Chloride 106, Carbon Dioxide 30.4, Anion Gap 5.6 L, BUN 14, Creatinine 0.88, Est GFR (Non-Af Amer) 70, BUN/Creatinine Ratio 15.9, Random Glucose 118 H, Calcium 8.5 Discharge Location: Home Disposition: Home self-care Condition: Good Discharge Activity: Activity as tolerated, Weight bearing Discharge Diet: General/regular food Referrals: Subha Ramírez MD [Primary Care Provider] - Additional Patient Instructions (free text): [facility] Physical Therapy appointment October 20 at 12:30p.m. Follow up with Orthopedic with Dr. Patel November 07 at 10:30a.m. Prescriptions (Any new or edited meds): Enoxaparin Sodium [Lovenox] 40 mg SC Q24H #7 disp.syrin Transmission Status: Pending to [place] Morphine Sulfate [Ms Contin] 15 mg PO Q12H #10 tablet.sa Transmission Status: Received by [place] oxyCODONE HCL/ACETAMINOPHEN [Percocet 5 MG/325 MG] 1 - 2 tab PO Q4H PRN #40 tab PRN Reason: Moderate Pain (Pain Scale 4-6) Transmission Status: Received by [place] Sennosides/Docusate Sodium [Senokot-S] 2 tab PO HS #60 tab Transmission Status: Pending to [place], [place] Complete Home Medications List: Complete Home Medication List: L.acidoph,Paracasei, B.lactis [Probiotic] 1 ea PO DAILY 07/26/18 cholecalciferol (vitamin D3) 50 mcg (2,000 unit) capsule 2,000 unit PO DAILY 10/05/18 omega-3 fatty acids 1,000 mg capsule 1,000 mg PO DAILY 10/05/18 Ubidecarenone [Co Q-10] 200 mg PO DAILY 07/06/19 levothyroxine 75 mcg tablet 75 mcg PO DAILY #90 tab 10/05/19 Enoxaparin Sodium [Lovenox] 40 mg SC Q24H #7 disp.syrin 10/20/19 Morphine Sulfate [Ms Contin] 15 mg PO Q12H #10 tablet.sa 10/20/19 Sennosides/Docusate Sodium [Senokot-S] 2 tab PO HS #60 tab 10/20/19 oxyCODONE HCL/ACETAMINOPHEN [Percocet 5 MG/325 MG] 1 - 2 tab PO Q4H PRN #40 tab 10/20/19 Amb Orders for Discharge: PT Evaluation and Treatment* Facility: [facility], Location: Rehabilitation Services Forms: Patient Portal Registration
[2019-10-20 14:45] VITALS: BP 149/74
== END 2019-10-20 15:20 | disposition home or self-care (01) | DRG 470 ==
LOC: MS 06:32
PROVIDERS: ADMIT Orthopaedic Surgery; ATTEND Orthopaedic Surgery
DX: M17.11 Unilateral primary osteoarthritis, right knee; D62 Acute posthemorrhagic anemia; E03.9 Hypothyroidism, unspecified
CPT/HCPCS: 36415; 73560; 80048; 85027; 97110; 97116; 97161; 97165; 97530